=== PATIENT | male | born 1965 | race Caucasian/White ===

== ENCOUNTER 2016-10-24 19:12 | Emergency (ER) | payer SELFPAY ==
[~2016-10-24] VITALS: Ht 180.3 cm; Wt 72.3 kg
[2016-10-24 19:16] VITALS: BP 147/93; PULSE 84; RESP 16; TEMP 97.8; O2SAT 95
--- NOTE | 2016-10-24 19:51 | PD ---
HPI Chief Complaint: Cold / Flu Symptoms Time Seen by Provider: 19:50 Travel History International Travel<30 days: No Contact w/Intl Traveler<30days: No Traveled to known affect area: No History of Present Illness HPI 51-year-old male presents to the ED for evaluation of 4 day history of dull headache, sinus congestion, rhinorrhea, dulled sense of hearing, sore throat, nonproductive cough and fevers. Gradual onset. Patient states that he measured a fever of 102 by oral thermometer 2 days ago. Patient denies this years flu vaccination. Endorses sick contacts, states that his partner has been ill but got better spontaneously. Treated at home with over the counter cough medications with no improvement of symptoms. Denies chronic health problems, takes no daily medications. PFSH Past Medical History Anxiety: Yes Depression: Yes Diminished Hearing: No Immune Disorder: Yes Inguinal Hernia: Yes (RIGHT) Psychiatric: Yes (DEPRESSION AND ANXIETY) Tetanus Vaccination: > 5 Years Influenza Vaccination: No Past Surgical History Abdominal Surgery: Yes (RIGHT INGUINAL SURGERY/UMBILICAL HERNIA REPAIR) Tonsillectomy: Yes Social History Alcohol Use: No Tobacco Use: Yes (1/2 PPD; FOR 20 YEARS) Substance Use: No Allergies-Medications (Allergen,Severity, Reaction): Coded Allergies: Codeine (Verified Allergy, Mild, 10/24/16) Reported Meds & Prescriptions Reported Meds & Active Scripts Active Tessalon Perles (Benzonatate) 100 Mg Cap 200 Mg PO TID PRN Medrol Dosepak (Methylprednisolone) 4 Mg Dspk 4 Mg PO DIRECTED Per Pharmacist direction Azithromycin 250 Mg Tab 250 Mg PO DIRECTED Take 2 tabs (500 mg) on day 1 then 1 tab daily x 4 days. Review of Systems Except as stated in HPI: all other systems reviewed are Neg Physical Exam Narrative GENERAL: Well-nourished, well-developed nontoxic appearing white male in no acute distress. SKIN: Warm and dry. HEAD: Normocephalic. Atraumatic. EYES: No scleral icterus. No injection or drainage. PERRLA. EOMI. ENT: Pearly vu tympanic membranes bilaterally. Nasal mucosa is moist. Oropharynx with mild posterior erythema. No edema or exudate. NECK: Supple, trachea midline. No JVD. ++ Right-sided anterior cervical lymphadenopathy. CARDIOVASCULAR: Regular rate and rhythm without murmurs, gallops, or rubs. 2+ DP and radial pulses bilaterally. RESPIRATORY: Breath sounds clear and equal bilaterally. Mild expiratory wheezing in bilateral lung gibsno. No accessory muscle use. GASTROINTESTINAL: Abdomen soft, non-tender, nondistended. + Bowel sounds MUSCULOSKELETAL: No cyanosis, or edema. Patient is observed to ambulate with normal gait. BACK: Nontender without obvious deformity. No CVA tenderness. Data Data Last Documented VS Vital Signs Date Time Temp Pulse Resp B/P Pulse Ox O2 Delivery O2 Flow Rate FiO2 10/24/16 19:41 18 98 Room Air 10/24/16 19:16 97.8 84 147/93 Orders Albuterol-Ipratropium Neb (Duoneb Neb) (10/24/16 20:00) MDM Medical Decision Making Medical Screen Exam Complete: Yes Emergency Medical Condition: Yes Differential Diagnosis Viral syndrome versus influenza versus pharyngitis versus bronchitis versus other Narrative Course 51-year-old male presents to the ED for evaluation of 4 day history of dull headache, sinus congestion, rhinorrhea, dulled sense of hearing, sore throat, nonproductive cough and fevers. Gradual onset. Patient states that he measured a fever of 102 by oral thermometer 2 days ago. Patient denies this years flu vaccination. Endorses sick contacts, states that his partner has been ill but got better spontaneously. Vitals reviewed. Patient is afebrile on presentation. Physical exam reveals a nontoxic-appearing white male in no acute distress. Positive physical findings include mild posterior oropharyngeal erythema, positive right-sided anterior cervical lymphadenopathy, expiratory wheezing in all lung gibson. Patient does have a wet sounding cough and produces scant sputum during the evaluation. Patient was administered a single DuoNeb treatment which did subjectively improve his breathing. This is bronchitis. Patient was prescribed azithromycin, Medrol Dosepak and Tessalon Perles. He is instructed to take all medications as prescribed, follow up with the primary care provider. We discussed reasons to return to the ED. He indicated understanding of instructions and is amenable to plan of care. Stable and discharged home. Diagnosis Primary Impression: Bronchitis Referrals: Primary Care Physician Patient Instructions: Acute Bronchitis (ED), General Instructions Additional Instructions: Rest, hydrate. Push fluids such as sports drinks, Pedialyte, popsicles, clear broth. Take Z pack and steroids as prescribed. Take Tessalon Perles 30 minutes before bed to soothe cough. Alternating Motrin and Tylenol every 4-6 hours as needed for continued fever. Disinfect commonly touched surfaces such as light switches, microwaves, remote controls. Replace toothbrush at the end of this illness. Follow-up with the primary care provider this week. Return to the ED for any urgent or emergent medical condition. Med/Other Pt SpecificInfo: Prescription(s) given Scripts Benzonatate (Tessalon Perles)100 Mg Nry201 Mg PO TID PRN (COUGH) #10 CAP Ref 0 Prov:Koko Jiménez MD 10/24/16 Methylprednisolone Dosepak (Medrol Dosepak)4 Mg Dspk4 Mg PO DIRECTED #1 DSPK Ref 0 Per Pharmacist direction Prov:Koko Jiménez MD 10/24/16 Azithromycin 250 Mg [id number] Mg PO DIRECTED #6 TAB Ref 0 Take 2 tabs (500 mg) on day 1 then 1 tab daily x 4 days. Prov:Koko Jiménez MD 10/24/16 Disposition: 01 DISCHARGE HOME Condition: Stable Kathleen Mcgill Oct 24, 2016 19:51
[2016-10-24] MEDS ORDERED: RESP: ALBUTEROL 2.5 MG/IPRATROPIUM 0.5 MG NEB (SCH) INH ONE (20:00)
[2016-10-24] MEDS ORDERED: AZIT250T3 PO (20:36)
[2016-10-24] MEDS ORDERED: BENZ100 PO (20:36)
[2016-10-24] MEDS ORDERED: MEDR4PAK PO (20:36)
== END 2016-10-24 20:47 | disposition home or self-care (01) ==
LOC: PHED 19:12 → PHEFT 20:47
DX: J40 Bronchitis, not specified as acute or chronic (principal); F17.210 Nicotine dependence, cigarettes, uncomplicated
CPT/HCPCS: 94664; 99283